=== PATIENT | female | born 1945 | race Caucasian/White ===

== ENCOUNTER 2018-03-12 11:33 | Emergency (ER) | payer MEDICARE ==
[2018-03-12 12:07] LABS: #Basophils 0.1 thou/uL (0.0-0.2); #Eosinphils 0.3 thou/uL (0.0-0.7); #Lymphocytes 1.4 thou/uL (1.20-3.40); #Monocytes 0.4 thou/uL (0.11-0.59); #Neutrophils 4.4 thou/uL (1.40-6.50); %Basophils 1.6 % (0.0-1.0); %Eosinophils 4.1 % (0.0-10.0); %Lymphocytes 20.9 % (21.0-51.0); %Monocytes 6.7 % (0.0-10.0); %Neutrophils 66.6 % (42.0-75.0); Hemoglobin 14.7 g/dL (12.0-16.0); Mean Corpuscular HGB CONC 32.5 g/dL (32.0-36.0); Mean Corpuscular Hemoglobin 31.8 pg (27.0-31.0); Mean Corpuscular Volume 97.6 fL (78.0-98.0); Mean Platelet Volume 11.2 fL (7.4-10.4); Platelet Count 176 thou/uL (130-400); RBC Distribution Width 13.6 % (11.5-14.5); Red Blood Cell (RBC) Count 4.64 mill/uL (4.20-5.40); White Blood Cell (WBC) Count 6.5 thou/uL (4.8-10.8)
[2018-03-12 12:25] LABS: ALT (SGPT) 17 U/L (8-55); AST (SGOT) 18 U/L (5-34); Albumin 4.3 g/dL (3.4-4.8); Alkaline Phosphatase 100 U/L (40-150); Anion Gap 13 mmol/L (10-20); BUN (Urea Nitrogen) 13 mg/dL (9.8-20.1); Bilirubin, Total 0.8 mg/dL (0.2-1.2); CK (CPK) 58 U/L (29-168); Calc. Creatinine Clearance 0 mL/min (70-130); Calcium 9.2 mg/dL (7.8-10.44); Carbon Dioxide 28 mmol/L (23-31); Chloride 104 mmol/L (98-107); Estimated GFR-MDRD 67; Globulin 2.8 g/dL (2.4-3.5); Glucose 103 mg/dL (83-110); Lipase 16 U/L (8-78); Protein, Total 7.1 g/dL (6.0-8.3); Sodium 141 mmol/L (136-145)
--- NOTE | 2018-03-12 13:09 | RAD ---
PORTABLE CHEST: HISTORY: Altered mental status. Elevated blood pressure. FINDINGS: Heart size is within normal limits for portable technique. Mediastinal structures appear unremarkabl e. The lungs are clear of any infiltrative process. IMPRESSION: No active intrathoracic disease. POS: [facility]
--- NOTE | 2018-03-12 13:09 | CT ---
CT HEAD NONCONTRAST: INDICATIONS: Headache. FINDINGS: There is no evidence of intracranial hemorrhage, mass effect, or midline shift. There are age indete rminate subtle hypodensities at each basal ganglia. No ventriculomegaly or midline shift. The ciro rium is intact. IMPRESSION: 1. No acute intracranial hemorrhage or mass effect. 2. Age indeterminate subtle hypodensities at each basal ganglia suggest lacunar infarctions. As nec essary, this could be further assessed with a follow-up brain MRI, in the absence of contraindication s. POS: [facility]
== END 2018-03-12 13:29 | disposition home or self-care (01) ==
LOC: SCSER 11:33
DX: I10 Essential (primary) hypertension (principal); I63.81 Other cerebral infarction due to occlusion or stenosis of small artery; H11.33 Conjunctival hemorrhage, bilateral; E03.9 Hypothyroidism, unspecified; Z87.891 Personal history of nicotine dependence; Z79.899 Other long term (current) drug therapy
CPT/HCPCS: 36415; 70450; 71045; 80053; 82550; 83690; 83880; 84443; 84484; 85025; 93005